=== PATIENT | female | born 1955 | race African-American/Black ===

== ENCOUNTER → 2016-09-21 | Outpatient (CLI) | payer OTHER ==
[~2016-09-21] MED LIST: ACET325C PO; AMLO10 PO; CALC600T64; CYCL1TAB29 PO; DIPH25CA PO; IBUP800T23 PO; LIPI20TA PO; LISI40TA PO; METF1000 PO; METH750T PO; OMEP20CA2 PO; PRIL20CA9 PO; TRAM50TA PO
[2016-09-21 09:39] LABS: BASOPHIL # 0.1 TH/MM3 (0-0.2); BASOPHIL % 0.9 % (0.0-2.0); EOSINOPHIL # 0.2 TH/MM3 (0-0.4); EOSINOPHIL % 2.5 % (0.0-4.0); HEMATOCRIT 37.2 % (35.0-46.0); HEMO FLAGS DIFF FINAL; LYMPH % 31.3 % (9.0-44.0); LYMPHOCYTE # 2.3 TH/MM3 (1.0-4.8); MEAN CELL VOLUME 88.5 FL (80.0-100.0); MEAN CORPUSCULAR HEMOGLOBIN 29.1 PG (27.0-34.0); MEAN CORPUSCULAR HGB CONC 32.9 % (32.0-36.0); MONO % 10.8 % (0.0-8.0); NEUT % 54.5 % (16.0-70.0); PLATELET COUNT 312 TH/MM3 (150-450); RED BLOOD COUNT 4.21 MIL/MM3 (4.00-5.30); RED CELL DISTRIBUTION WIDTH 14.4 % (11.6-17.2); WHITE BLOOD COUNT 7.4 TH/MM3 (4.0-11.0)
[2016-09-21 10:06] LABS: ALKALINE PHOSPHATASE 97 U/L (45-117); ALT (GPT) 37 U/L (10-53); ANION GAP 10 MEQ/L (5-15); AST (GOT) 22 U/L (15-37); BICARBONATE 27.1 MEQ/L (21.0-32.0); BLOOD UREA NITROGEN 20 MG/DL (7-18); CHLORIDE 103 MEQ/L (98-107); GLOMERULAR FILTRATION RATE 81 ML/MIN (>89); GLUCOSE,FASTING 150 MG/DL (74-99); HDL CHOLESTEROL 38.4 MG/DL (40.0-60.0); LDL CHOLESTEROL 131 MG/DL (0-99); POTASSIUM 3.7 MEQ/L (3.5-5.1); SODIUM (NA) 140 MEQ/L (136-145); TOTAL BILIRUBIN ADULT 0.1 MG/DL (0.2-1.0)
[2016-09-21 18:07] LABS: HEMOGLOBIN A1a 1.3 %; HEMOGLOBIN A1b 2.4 %; HEMOGLOBIN Ao 81.3 %; HEMOGLOBIN LA1C 2.4 %; HEMOGLOBIN P3 4.4 %
== END ==
LOC: CLAB 08:53
PROVIDERS: ATTEND Family Medicine
DX: M54.9 Dorsalgia, unspecified (principal); E11.9 Type 2 diabetes mellitus without complications; R51 Headache; I10 Essential (primary) hypertension
CPT/HCPCS: 36415; 80053; 80061; 83036; 84443; 85025

== ENCOUNTER 2017-01-18 18:18 | Emergency (ER) | payer OTHER ==
[~2017-01-18] VITALS: Ht 152.4 cm; Wt 70.0 kg
[~2017-01-18 18:18] MED LIST changes: -PRIL20CA9 PO
[2017-01-18 18:25] VITALS: BP 184/84; PULSE 82; RESP 20; TEMP 98.6; O2SAT 98
--- NOTE | 2017-01-18 19:45 | PD ---
HPI . headache for 1 month Chief Complaint: Headache Time Seen by Provider: 19:40 Travel History International Travel<30 days: No Contact w/Intl Traveler<30days: No Traveled to known affect area: No History of Present Illness HPI 61-year-old female well known to me from the [facility] clinic with complaints of headache for over one month. Patient tells me that she feels she has a sinus infection and has tried to be seen in the clinic, however they seem to be playing phone tag and she cannot get an appointment. She reports a headache that has been chronic, however worsened over the last week. She feels facial pressure and head congestion. She's not tried any over-the- counter formulations. She denies any visual changes, slurred speech, dizziness or weakness. She denies any chest pain, shortness breath, nausea, vomiting or diaphoresis and she has no other complaints. PFSH Past Medical History Anemia: Yes Arthritis: Yes Depression: Yes Heart Rhythm Problems: Yes Cardiac Catheterization: Yes (2008) Cardiovascular Problems: Yes (HTN) High Cholesterol: No Chest Pain: Yes Congestive Heart Failure: No Diabetes: Yes (METFORMIN) Diminished Hearing: No Gastrointestinal Disorders: Yes GERD: Yes Hiatal Hernia: Yes Hypertension: Yes Menopausal: No : 6 Para: 4 Miscarriage: 2 : 0 Tubal Ligation: Yes (19 YR AGO) Past Surgical History Cardiac Surgery: Yes (HEART CATH 2008) Hysterectomy: Yes (RADICAL 04/10) Other Surgery: Yes Social History Alcohol Use: Yes (SOCIALLY - couple of beers yesterday.) Tobacco Use: No (QUIT 2007) Substance Use: No Allergies-Medications (Allergen,Severity, Reaction): Coded Allergies: codeine (Unverified Allergy, Severe, Itching, 01/18/17) metoclopramide (Unverified Allergy, Severe, RASH, 01/18/17) Reported Meds & Prescriptions Reported Meds & Active Scripts Active Augmentin (Amoxicillin-Clavulanate) 875-125 Mg Tab 1 Tab PO BID Metformin (Metformin HCl) 1,000 Mg Tab 1,000 Mg PO BIDPC With meals Norvasc (Amlodipine Besylate) 10 Mg Tab 10 Mg PO DAILY Lisinopril 40 Mg Tab 40 Mg PO BID Lipitor (Atorvastatin Calcium) 20 Mg Tab 20 Mg PO HS Methocarbamol 750 Mg Tab 750 Mg PO QID Ibuprofen 800 Mg Tab 800 Mg PO Q8H PRN Reported Acetaminophen 325 Mg Capsule 500 Mg PO Tramadol (Tramadol HCl) 50 Mg Tab 100 Mg PO Q6H PRN Calcium 600 + Vit D Tablet (Calcium Carbonate/Vitamin D3) 1 Each Tablet Omeprazole 20 Mg Cap 20 Mg PO EVERY OTHER DAY PRN Flexeril (Cyclobenzaprine HCl) 10 Mg Tab 10 Mg PO TID Diphenhydramine (Diphenhydramine HCl) 25 Mg Cap 25 Mg PO ONCE Review of Systems General / Constitutional: No: Fever Eyes: No: Visual changes HENT: Positive: Headaches, Congestion Cardiovascular: No: Chest Pain or Discomfort Respiratory: No: Shortness of Breath Gastrointestinal: No: Abdominal Pain Genitourinary: No: Dysuria Musculoskeletal: No: Pain Skin: No Rash Neurologic: No: Weakness, Headache Psychiatric: No: Depression Endocrine: No: Polydipsia Hematologic/Lymphatic: No: Easy Bruising Physical Exam Narrative GENERAL: AAO x 3, no acute distress, Well-nourished, well-developed patient. SKIN: Warm and dry. No visible rashes or bruising. HEAD: Normocephalic and atraumatic. EYES: No scleral icterus. No injection or drainage. EOM intact, PERRLA ENT: No nasal drainage noted. Mucous membranes pink. Airway patent. Frontal and maxillary sinus tenderness. NECK: Supple, trachea midline. No JVD. No lymphadenopathy CARDIOVASCULAR: Regular rate and rhythm without murmurs, gallops, or rubs. RESPIRATORY: Breath sounds equal bilaterally. No accessory muscle use. No rhonchi or rales. GASTROINTESTINAL: Abdomen soft, non-tender, nondistended. EXTREMITIES: No cyanosis or edema. BACK: No obvious deformity. 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 No pronator drift. Romberg normal. PSYCH: AAO x 3, normal affect. Data Data Last Documented VS Vital Signs Date Time Temp Pulse Resp B/P (MAP) Pulse Ox O2 Delivery O2 Flow Rate FiO2 01/18/17 18:25 98.6 82 20 184/84 (117) 98 Room Air Orders Orders Amoxicil-Clavulanate (Augmentin) (01/18/17 20:00) [facility] Medical Decision Making Medical Screen Exam Complete: Yes Emergency Medical Condition: Yes Medical Record Reviewed: Yes Differential Diagnosis Sinus headache, sinusitis, migraine, less likely tumor Narrative Course 61-year-old female here with headache for over a month. On examination she does not have any neuro deficits. She appears to have acute sinusitis and sinus headache. I do not believe CT imaging is indicated. This is not a sudden onset headache or worst headache of her life. I splinter that I recommend antibiotics. I will give her a dose here in the emergency department. I recommend Augmentin for the next 10 days. I recommend she call the community clinic for follow-up. Patient verbalized understanding of instructions, questions were answered, and thanked me for their care. I advised them if their condition worsens, please return to the nearest emergency room for further care. Diagnosis Primary Impression: Sinus headache Additional Impression: Acute sinusitis Qualified Codes: J01.10 - Acute frontal sinusitis, unspecified Patient Instructions: General Instructions Additional Instructions: Please return to emergency department if your symptoms return or worsen. Follow up with your primary care provider. Take medications as prescribed. Med/Other Pt SpecificInfo: Prescription(s) given Scripts Amoxicillin-Clavulanate (Augmentin) 875-125 Mg Tab 1 TAB PO BID for Infection, #20 TAB 0 Refills Prov: Joel Hughes MD 01/18/17 Disposition: 01 DISCHARGE HOME Condition: Stable Sana Miller Jan 18, 2017 19:45
[2017-01-18] MEDS ORDERED: AUGM875T3 PO (19:49)
[2017-01-18] MEDS ORDERED: AMOXICILLIN/CLAVULANATE K 875 MG TAB PO ONE (20:00)
[2017-01-29] MEDS ORDERED: LISI40TA PO (11:29)
[2017-01-29] MEDS ORDERED: AMLO10 PO (11:29)
[2017-01-29] MEDS ORDERED: IBUP800T23 PO (11:29)
[2017-01-29] MEDS ORDERED: METH750T PO (11:29)
[2017-01-29] MEDS ORDERED: LIPI20TA PO (11:29)
[2017-01-29] MEDS ORDERED: METF1000 PO (11:29)
[2017-01-29] MEDS ORDERED: ALBU6.7H INH (11:37)
== END 2017-01-18 20:59 | disposition home or self-care (01) ==
LOC: NEPD 18:18
DX: J01.10 Acute frontal sinusitis, unspecified (principal); Z87.891 Personal history of nicotine dependence
CPT/HCPCS: 99283

== ENCOUNTER 2017-10-15 08:31 | Emergency (ER) | payer SELFPAY ==
[~2017-10-15] VITALS: Ht 152.4 cm; Wt 71.0 kg
[~2017-10-15 08:31] MED LIST changes: +ALBU6.7H INH; +AUGM875T3 PO; -CALC600T64; -CYCL1TAB29 PO; +IBUP1TAB7 PO; -IBUP800T23 PO
[2017-10-15 08:34] VITALS: BP 172/74; PULSE 85; RESP 18; TEMP 98; O2SAT 97
[2017-10-15] MEDS ORDERED: CYCL5TAB PO (08:51)
--- NOTE | 2017-10-15 08:51 | PD ---
HPI Chief Complaint: Back/ Neck Pain or Injury Time Seen by Provider: 08:42 Travel History International Travel<30 days: No Contact w/Intl Traveler<30days: No Traveled to known affect area: No History of Present Illness HPI Patient is a 62-year-old female presented to emerge from for evaluation of left mid back pain. [facility] when she reached up to get water off of the shelf and twisted her back. Patient did not fall. Patient states the pain is constant, tight and cramping in nature, worse with movement. She rates her pain a 5 out of 10. Patient states that she is currently in a clinical trial for chronic back pain. She states that she is either taking a placebo or tramadol. Patient denies any weakness in her extremities, no bladder or bowel incontinence, no saddle paresthesia. Symptom onset was fairly sudden, symptoms are mild to moderate nature. PFSH Past Medical History Anemia: Yes Arthritis: Yes Depression: Yes Heart Rhythm Problems: Yes Cardiac Catheterization: Yes (2008) Cardiovascular Problems: Yes (HTN) High Cholesterol: No Chest Pain: Yes Congestive Heart Failure: No Diabetes: Yes Diminished Hearing: No Gastrointestinal Disorders: Yes GERD: Yes Hiatal Hernia: Yes Hypertension: Yes Respiratory: Yes Menopausal: No : 6 Para: 4 Miscarriage: 2 : 0 Tubal Ligation: Yes (19 YR AGO) Past Surgical History Cardiac Surgery: Yes (HEART CATH 2008) Gynecologic Surgery: Yes (TUBAL LIGATION 1988) Hysterectomy: Yes (RADICAL 04/10) Other Surgery: Yes Social History Alcohol Use: Yes Tobacco Use: No Substance Use: No Allergies-Medications (Allergen,Severity, Reaction): Coded Allergies: codeine (Unverified Allergy, Severe, Itching, 01/29/17) metoclopramide (Unverified Allergy, Severe, RASH, 01/29/17) Reported Meds & Prescriptions Reported Meds & Active Scripts Active Flexeril (Cyclobenzaprine HCl) 5 Mg Tab 5 Mg PO TID PRN Proventil Hfa 6.7 GM Inh (Albuterol Sulfate) 90 Mcg/Act Aer 2 Puff INH Q4-6H PRN Metformin (Metformin HCl) 1,000 Mg Tab 1,000 Mg PO BIDPC With meals Norvasc (Amlodipine Besylate) 10 Mg Tab 10 Mg PO DAILY Lisinopril 40 Mg Tab 40 Mg PO BID Lipitor (Atorvastatin Calcium) 20 Mg Tab 20 Mg PO HS Methocarbamol 750 Mg Tab 750 Mg PO QID Ibuprofen 800 Mg Tab 800 Mg PO Q8H PRN Augmentin (Amoxicillin-Clavulanate) 875-125 Mg Tab 1 Tab PO BID Reported Acetaminophen 325 Mg Capsule 500 Mg PO Tramadol (Tramadol HCl) 50 Mg Tab 100 Mg PO Q6H PRN Omeprazole 20 Mg Cap 20 Mg PO EVERY OTHER DAY PRN Diphenhydramine (Diphenhydramine HCl) 25 Mg Cap 25 Mg PO ONCE Review of Systems Except as stated in HPI: all other systems reviewed are Neg Musculoskeletal: Positive: Myalgias, Cramping Physical Exam Narrative GENERAL: Well-developed, well-nourished, alert -[place] female. Presenting in no acute distress. SKIN: Warm and dry. HEAD: Atraumatic. Normocephalic. EYES: Pupils equal and round. No scleral icterus. No injection or drainage. ENT: No nasal bleeding or discharge. Mucous membranes pink and moist. NECK: Trachea midline. No JVD. CARDIOVASCULAR: Regular rate and rhythm. RESPIRATORY: No accessory muscle use. Clear to auscultation. Breath sounds equal bilaterally. GASTROINTESTINAL: Abdomen soft, non-tender, nondistended. Hepatic and splenic margins not palpable. MUSCULOSKELETAL: Extremities without clubbing, cyanosis, or edema. No obvious deformities. Tenderness to palpation in left paraspinal musculature in the thoracic region. No spinal tenderness or step-off noted. NEUROLOGICAL: Awake and alert. No obvious cranial nerve deficits. Motor grossly within normal limits. Five out of 5 muscle strength in the arms and legs. Normal speech. PSYCHIATRIC: Appropriate mood and affect; insight and judgment normal. Data Data Last Documented VS Vital Signs Date Time Temp Pulse Resp B/P (MAP) Pulse Ox O2 Delivery O2 Flow Rate FiO2 10/15/17 08:34 98.0 85 18 172/74 (106) 97 Orders Orders Ed Discharge Order (10/15/17 08:51) MDM Medical Decision Making Medical Screen Exam Complete: Yes Emergency Medical Condition: Yes Interpretation(s) Vital Signs Date Time Temp Pulse Resp B/P (MAP) Pulse Ox O2 Delivery O2 Flow Rate FiO2 10/15/17 08:34 98.0 85 18 172/74 (106) 97 Differential Diagnosis Muscle strain versus muscle spasm versus discogenic pain versus other Narrative Course Patient is well-appearing female presenting for evaluation of back pain that started over week ago when she twisted it picking up water. Patient has no focal deficits on exam. Exam is consistent with muscular skeletal strain. Patient is involved in a clinical trial for chronic back pain. Patient was encouraged to take acetaminophen as needed and as directed for pain since this is allowed with the clinical trial. She will be given a prescription for Flexeril, she was advised to discuss with physician prior to starting therapy to avoid possible interaction or interference with clinical trial. She is encouraged to apply warm heat to affected area, avoid bed rest, avoid exacerbating activities. She is encouraged return to emergency department for any new worsening symptoms. Patient verbalized understanding of instructions. Patient stable for discharge. Diagnosis Primary Impression: Strain of thoracic paraspinal muscles excluding T1 and T2 levels Qualified Codes: S29.012A - Strain of muscle and tendon of back wall of thorax , initial encounter Referrals: Primary Care Physician 1 day Patient Instructions: General Instructions, Muscle Spasm (ED), Muscle Strain ( ED) Additional Instructions: Apply warm heat to the affected area, continue gentle range of motion exercises , avoid bed rest, avoid exacerbating activities Take acetaminophen as needed and as directed for pain. Discussed taking Flexeril with clinical trial physician prior to taking medication to avoid interruption in study or possible interaction Return to emergency department for any new or worsening symptoms Follow-up with your primary doctor Med/Other Pt SpecificInfo: Prescription(s) given Scripts Cyclobenzaprine (Flexeril) 5 Mg Tab 5 MG PO TID Y for MUSCLE SPASM, #30 TAB 0 Refills Prov: Claudia Bartholomew 10/15/17 Disposition: 01 DISCHARGE HOME Condition: Stable Claudia Bartholomew Oct 15, 2017 08:51
== END 2017-10-15 09:21 | disposition home or self-care (01) ==
LOC: NEPD 08:31
DX: S29.012A Strain of muscle and tendon of back wall of thorax, initial encounter (principal); G89.29 Other chronic pain; E11.9 Type 2 diabetes mellitus without complications; I10 Essential (primary) hypertension; K21.9 Gastro-esophageal reflux disease without esophagitis; F32.9 Major depressive disorder, single episode, unspecified; X50.1XXA Overexertion from prolonged static or awkward postures, initial encounter; Y93.89 Activity, other specified; Y92.512 Supermarket, store or market as the place of occurrence of the external cause; Z79.84 Long term (current) use of oral hypoglycemic drugs
CPT/HCPCS: 99283